=== PATIENT | female | born 1965 | race Caucasian/White ===

== ENCOUNTER 2021-09-17 06:36 | Day surgery (SDC) | payer MEDICAID, MEDICARE ==
[~2021-09-17 06:36] MED LIST: Lactated Ringers 1,000 ML IV SCH; Sodium Chloride 0.9% 10 ML Syringe FLUSH PRN
[2021-09-17] MEDS ORDERED: Succinylcholine 200 MG/10 ML MDV IV ONE (06:37)
[2021-09-17] MEDS ORDERED: Dexamethasone 4 MG/ML 5 ML MDV IVPUSH ONE (06:37)
[2021-09-17] MEDS ORDERED: Rocuronium 100 MG/10 ML MDV IV ONE (06:37)
[2021-09-17] MEDS ORDERED: HYDROmorphone 2 MG/ML SDV IV ONE (06:37)
[2021-09-17] MEDS ORDERED: Midazolam 1 MG/ML 2 ML SDV IV ONE (06:37)
[2021-09-17] MEDS ORDERED: Ondansetron 4 MG/2 ML SDV IVPUSH ONE (06:37)
[2021-09-17] MEDS ORDERED: Glycopyrrolate 0.2 MG/ML 5 ML MDV IV ONE (06:37)
[2021-09-17] MEDS ORDERED: Lactated Ringers 1,000 ML IV ONE (06:37)
[2021-09-17] MEDS ORDERED: Neostigmine Methylsulfate 10 MG/10 ML MDV IVPUSH ONE (06:37)
[2021-09-17] MEDS ORDERED: Dexmedetomidine 200 MCG/2 ML SDV IV ONE (06:37)
[2021-09-17] MEDS ORDERED: fentaNYL 100 MCG/2 ML SDV IV ONE (06:37)
[2021-09-17] MEDS ORDERED: diphenhydrAMINE 50 MG/ML SDV IVPUSH ONE (06:37)
[2021-09-17] MEDS ORDERED: Propofol 200 MG/20 ML SDV IV ONE (06:37)
[2021-09-17] MEDS ORDERED: ceFAZolin 1 GM Vial IVPUSH ONE (08:00)
[2021-09-17] MEDS ORDERED: ceFAZolin 1 GM in Sodium Chloride 0.9% 50 ML IV ONE (08:00)
[2021-09-17] MEDS ORDERED: Bupivacaine 0.5%/EPINEPHrine 1:200,000 10 ML SDV INJECT ONE (08:41)
[2021-09-17] MEDS ORDERED: Acetaminophen/HYDROcodone 325-5 MG Tab PO ONE (11:13)
== END 2021-09-17 13:05 | disposition home or self-care (01) ==
LOC: FB.SDS 06:36
PROVIDERS: ATTEND Surgery
DX: K43.6 Other and unspecified ventral hernia with obstruction, without gangrene (principal); F41.9 Anxiety disorder, unspecified; F32.A Depression, unspecified; F17.210 Nicotine dependence, cigarettes, uncomplicated; J44.9 Chronic obstructive pulmonary disease, unspecified; Z98.890 Other specified postprocedural states; Z79.899 Other long term (current) drug therapy
CPT/HCPCS: C1713; C1781; J0330; J0690; J1100; J1170; J1200; J2250; J2405; J2704; J2710; J3010; J3490; J7120